=== PATIENT | male | born 1950 | race Caucasian/White ===

== ENCOUNTER 2019-05-19 09:54 | Outpatient (CLI) | payer MEDICARE, MEDICAID, SELFPAY ==
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
== END 2019-05-19 09:55 | disposition home or self-care (01) ==
PROVIDERS: PCP Nurse Practitioner Family; Visit Provider Nurse Practitioner
DX: M54.2 Cervicalgia (principal); R51 Headache; S06.0X9A Concussion with loss of consciousness of unspecified duration, initial encounter; V89.2XXA Person injured in unspecified motor-vehicle accident, traffic, initial encounter; M48.02 Spinal stenosis, cervical region; M47.892 Other spondylosis, cervical region
CPT/HCPCS: 70450; 72141

== ENCOUNTER 2019-08-25 10:15 | Outpatient (CLI) | payer MEDICARE, MEDICAID, SELFPAY ==
--- NOTE | 2019-08-25 10:25 | XR_ITS ---
WS: [id number] CERVICAL SPINE FLEXION EXTENSION TECHNIQUE: 3 views of the cervical spine: lateral neutral, flexion and extension views. CLINICAL INFORMATION: Neck pain COMPARISON: None. FINDINGS: Straightening of the normal cervical lordosis with moderate spondylitic changes. Anterior hypertrophi c changes at C3-C6. Disc space narrowing worse at C4-C5 C5-C6 and C6-C7. Normal C1-2 articulation. No rmal prevertebral soft tissues. No instability on flexion-extension. Posterior elements are normal. No other significant findings. XR/XR cervical spine fl/ex [id number] IMPRESSION: 1. Straightening of the normal cervical lordosis with moderate spondylitic colt nges. 2. Anterior hypertrophic changes worse at C3-C6. 3. No instability on flexion-extension.
--- NOTE | 2019-08-25 10:25 | XR_ITS ---
WS: [id number] LUMBAR SPINE FLEXION AND EXTENSION TECHNIQUE: 3 views of the lumbar spine: Lateral neutral, flexion, and extension views. CLINICAL INFORMATION: Low back pain COMPARISON: None. FINDINGS: Normal lumbar alignment on the neutral view. Mild spondylitic changes. Slight anterior hypertrophic spurring L3-L5. Moderate facet arthropathy L5- S1. Slight anterolisthesis L4 on L5 in flexion measuring 2.4 mm. XR/XR lumbar spine f/e only [id number] IMPRESSION: Mild flexion instability L4-5 measuring 2.4 mm. This is normal alignment in felice tral and extension.
== END 2019-08-25 10:16 | disposition home or self-care (01) ==
LOC: RADWPI 10:21
PROVIDERS: PCP Nurse Practitioner Family; Visit Provider Nurse Practitioner Family
DX: M54.5 Low back pain (principal); M54.2 Cervicalgia; M53.2X6 Spinal instabilities, lumbar region
CPT/HCPCS: 72040; 72120

== ENCOUNTER → 2020-05-31 12:07 | Outpatient (BNVA) | payer MEDICARE, MEDICAID, SELFPAY | PROVIDERS: PCP Nurse Practitioner Family; Visit Provider Nurse Practitioner Family | DX: M51.36 Other intervertebral disc degeneration, lumbar region (principal); M54.5 Low back pain; Z79.899 Other long term (current) drug therapy; Z13.6 Encounter for screening for cardiovascular disorders; E55.9 Vitamin D deficiency, unspecified; Z12.5 Encounter for screening for malignant neoplasm of prostate | CPT/HCPCS: 80053; 80061; 81003; 82306; 83036; 84443; 85025; 87077; 87086; 87184; G0103 ==

== ENCOUNTER → 2021-01-30 09:14 | Outpatient (BNVA) | payer MEDICARE, MEDICAID, SELFPAY | PROVIDERS: PCP Nurse Practitioner Family; Visit Provider Nurse Practitioner Family | DX: Z13.6 Encounter for screening for cardiovascular disorders (principal); Z79.899 Other long term (current) drug therapy; Z12.5 Encounter for screening for malignant neoplasm of prostate; E55.9 Vitamin D deficiency, unspecified | CPT/HCPCS: 80053; 80061; 81003; 82306; 83036; 84443; 85025; G0103 ==

== ENCOUNTER 2022-10-17 05:57 | Emergency (ER) | payer MEDICARE, MEDICAID, SELFPAY ==
[2022-10-17 06:04] VITALS: BP 212/105; PULSE 92; RESP 18; TEMP 36.5; O2SAT 98; BMI 28.7
[2022-10-17 06:08] VITALS: BP 218/117
--- NOTE | 2022-10-17 06:14 | XRR_ITS ---
PROCEDURE INFORMATION: Exam: XR Left Shoulder Exam date and time: 10/17/2022 6:55 AM Age: 72 years old Clinical indication: Pain; Shoulder; Left TECHNIQUE: Imaging protocol: Radiologic exam of the left shoulder. Views: 2 or more views. COMPARISON: No relevant prior studies available. FINDINGS: Bones/joints: There is no acute fracture or dislocation. If symptoms persist, follow-up imaging in several days may be useful to exclude an occult or subtle fracture. No other significant acute bone or joint abnormality. Mild arthritic changes involving the left AC joint and glenohumeral joint. Soft tissues: No significant acute finding. XR/XR shoulder LT min 2V* [id number] IMPRESSION: 1. No acute fracture or dislocation. 2. Other findings discussed above.
--- NOTE | 2022-10-17 06:15 | XRR_ITS ---
PROCEDURE INFORMATION: Exam: XR Chest Exam date and time: 10/17/2022 6:55 AM Age: 72 years old Clinical indication: Shortness of breath; Additional info: Dyspnea/cough TECHNIQUE: Imaging protocol: Radiologic exam of the chest. Views: 1 view. COMPARISON: No relevant prior studies available. FINDINGS: Lungs: No CHF/pulmonary edema. Very mild linear opacities in both lower lungs, likely atelectasis or parenchymal scarring. Subtle pneumonitis not entirely excluded. Please correlate clinically. Visible lungs otherwise appear essentially clear. Pleural spaces: No visible pneumothorax. No definite pleural fluid. Heart/Mediastinum: Heart size is within normal limits. Bones/joints: No significant acute finding. XR/XR chest 1V portable [id number] IMPRESSION: 1. Very mild lower lung opacities, see above discussion. 2. Other findings discussed above.
--- NOTE | 2022-10-17 06:15 | ECG_ITS ---
[facility] Test Date: 2022-10-17 Pat Name: Brenden Ryder Department: Room: Gender: Male Delivery Driver: : 1950 Requested By: Wayne Mojica Order Number: [id number] Meena MD: Bibiana Leahy M.D. Measurements Intervals [place] Rate: 84 P: 47 FL: 164 QRS: -47 QRSD: 98 T: 56 QT: 353 QTc: 419 Interpretive Statements SINUS RHYTHM LEFT AXIS DEVIATION [QRS AXIS < -30] No previous ECG available for comparison Electronically Signed On 10-17-2022 12:25:25 CDT by Bibiana Leahy M.D. [id number]
--- NOTE | 2022-10-17 06:30 | W.ED.EXTPRO ---
HPI - Extremity Problem General: Chief complaint: Extremity Problem,Nontraumatic Stated complaint: Shoulder Pain Time Seen by Provider: 10/17/22 06:14 Source: patient Mode of arrival: ambulatory History of Present Illness: 72-year-old male presents to the emergency room with complaint of shoulder pain. Presents here he states his shoulder has been dislocated all night he wants this to relocated he said shoulder pain intermittently for the last week. No diaphoresis with that he denies anything that seems to exacerbate or worsen it last night for period of time he was unable to raise his left arm that has resolved. He had no other symptoms no vision difficulty no difficulty speech or swallowing denies chest pain. No shortness of breath. His blood pressure is significantly elevated which he dismisses that he states that his blood pressure is always high he controls it with herbs. He initially denies EKG blood work and antihypertensives to emergently lower his blood pressure. Patient states for a time last night he could not lift his left arm. MD Complaint: extremity pain and joint pain Onset (ago): hour(s) Pain Consistency: intermittent Location: left and upper extremity Quality: sharp Radiation: none Relieving factors: nothing Associated symptoms: Deny arthralgias, chest pain, fever(s), myalgias, rash or short of breath Review of Systems Const: Denies: fever(s) or chills ENMT: Denies: throat pain, ear or mastoid pain, nasal discharge or nasal congestion Card: Denies: chest pain, palpitations or irregular heart rhythm Resp: Denies: dyspnea, productive cough or non-productive cough GI: Denies: abdominal pain, nausea, vomiting, hematemesis, coffee ground emesis, diarrhea, constipation, bloating, hematochezia or melena : Denies: flank pain, dysuria, urinary frequency or urinary urgency Musc: Reports: joint pain; Denies: neck pain or back pain Skin/Breast: Denies: rash Neuro: Reports: weakness in extremities PFSH ED PFSH: Medical History Cervical disc disorder with myelopathy of mid-cervical region Cervical strain DDD (degenerative disc disease), lumbar Hypertension screen Low back pain of over 3 months duration Medication management Prostate cancer screening Stenosis of cervical spine with myelopathy Vitamin D deficiency Surgical History History of appendectomy Family History Mother Cancer Father Stroke Social History Smoking and tobacco status: former smoker Alcohol intake: former Substance/Drug Use: never Household members: spouse Marital status: Current occupational status: employed and retired Current occupation: Supervisor [employer] Physical Exam Const: GENERAL APPEARANCE: cooperative and comfortable ORIENTATION/CONSCIOUSNESS: Yes awake, Yes oriented to person, Yes oriented to place and Yes oriented to time HENMT: COMMON NORMALS: normocephalic, atraumatic and hearing grossly normal bilaterally HEAD & SCALP: normocephalic and atraumatic Resp: COMMON NORMALS: normal respiratory effort, No retractions, No use of accessory muscles and clear to auscultation bilaterally AUSCULTATION: clear to auscultation bilaterally Cardio: COMMON NORMALS: regular rate, regular rhythm and No murmurs present (Cardio) RATE: regular rate RHYTHM: regular rhythm GI: COMMON NORMALS: Soft to palpation and No hepatosplenomegaly present AUSCULTATION: Yes normoactive bowel sounds PALPATION: Yes Soft to palpation, No Tenderness to palpation present (GI), No Guarding due to palpation present (GI) and Yes No hepatosplenomegaly present Extremity: COMMON NORMALS: normal to inspection, capillary refill normal, no clubbing, cyanosis or edema, no calf tenderness and no pedal edema OTHER: No joint deformity. There are some thickness in the upper humerus but on palpation I suspect he may have a previous fracture of the left glenohumeral joint is intact he has mildly restricted range of motion but generally moves about normally and there is no dislocation. Left arm neurovascularly intact Neuro: SENSORIUM/ORIENTATION: Yes oriented to person, Yes oriented to place and Yes oriented to time Skin: COMMON NORMALS: no rashes or lesions noted GENERAL SKIN EXAM: no rashes or lesions noted Course Vital Signs: Vital signs: Vital Signs Temperature 97.7 F 10/17/22 06:04 Pulse Rate 95 10/17/22 09:23 Respiratory Rate 16 10/17/22 09:23 Blood Pressure 182/90 10/17/22 09:23 Pulse Oximetry 96 10/17/22 09:23 Oxygen Delivery Me thod Room Air 10/17/22 06:04 MDM - Extremity (Nontraumatic) Medical Decision Making X-ray of the shoulder shows arthritic changes otherwise is unremarkable. Cardiac enzymes negative EKG shows a junctional rhythm. Patient's blood pressure was extremely high when he first arrived he did respond with medications given I will discharge him home on amlodipine 5 mg daily lisinopril 20 mg daily have him follow-up with his primary care provider within the next week to reevaluate blood pressure. For his shoulder will refer to orthopedics. I believe his shoulder pain is musculoskeletal in nature. He continues to deny any chest pain. Recheck with any worsening or changes symptoms Medical Records I reviewed the patient's medical records. Lab Data I reviewed the patient's lab results. 10/17/22 06:24 10/17/22 06:24 Radiology Impressions Shoulder X-Ray 10/17/22 06:14 IMPRESSION: 1. No acute fracture or dislocation. 2. Other findings discussed above. Chest X-Ray 10/17/22 06:15 IMPRESSION: 1. Very mild lower lung opacities, see above discussion. 2. Other findings discussed above. Head CT 10/17/22 06:43 IMPRESSION: 1. No acute intracranial hemorrhage or mass effect. 2. No definite acute infarct by CT, see above. 3. Other findings discussed above. Laboratory Results WBC 13.3 10^3/uL (4.0-10.0) H 10/17/22 06:24 RBC 5.03 10^6/uL (4.1-5.3) 10/17/22 06:24 Hgb 15.8 g/dL (11.7-16.6) 10/17/22 06:24 Hct 46.1 % (42.0-52.0) 10/17/22 06:24 MCV 91.7 fl (80-94) 10/17/22 06:24 MCH 31.4 pg (28.0-34.0) 10/17/22 06:24 MCHC 34.3 g/dL (30.0-36.0) 10/17/22 06:24 RDW 12.2 % (12.1-15.1) 10/17/22 06:24 Plt Count 314 10^3/cmm (130-400) 10/17/22 06:24 MPV 9.8 fL (7.4-10.4) 10/17/22 06:24 Neut % (Auto) 72.1 % 10/17/22 06:24 Lymph % (Auto) 15.8 % 10/17/22 06:24 Bladen % (Auto) 7.4 % 10/17/22 06:24 Eos % (Auto) 3.5 % 10/17/22 06:24 Baso % (Auto) 0.6 % 10/17/22 06:24 Neut # (Auto) 9.62 10^3/uL (1.8-7.7) H 10/17/22 06:24 Lymph # (Auto) 2.1 10^3/uL (0.8-4.8) 10/17/22 06:24 Bladen # (Auto) 1.0 10^3/uL (0.2-0.9) H 10/17/22 06:24 Eos # (Auto) 0.5 10^3/uL (0.0-0.8) 10/17/22 06:24 Baso # (Auto) 0.1 10^3/uL (0.0-0.1) 10/17/22 06:24 Nucleated RBC % (auto) 0 % 10/17/22 06:24 Nucleated RBCs # 0.0 /100WBC 10/17/22 06:24 Sodium 137 mmol/L (136-145) 10/17/22 06:24 Potassium 4.4 mmol/L (3.5-5.1) 10/17/22 06:24 Chloride 102 mmol/L (98-107) 10/17/22 06:24 Carbon Dioxide 23 mmol/L (22-29) 10/17/22 06:24 Anion Gap 16.4 (5-19) 10/17/22 06:24 BUN 11 mg/dL (8-23) 10/17/22 06:24 Creatinine 1.0 mg/dL (0.7-1.2) 10/17/22 06:24 GFR Calculation 73.9 mL/min (90-130) L 10/17/22 06:24 Glucose 123 mg/dL (65-115) H 10/17/22 06:24 Calculated Osmolality 285 mOsm/kg (285-295) 10/17/22 06:24 Calcium 9.1 mg/dL (8.5-10.5) 10/17/22 06:24 Troponin T Baseline 6 ng/L (0-15) 10/17/22 06:24 Troponin T 120 Minute 6.00 ng/L (0-15) 10/17/22 08:27 Discharge Plan Discharge Patient Disposition: Home Clinical Impression: HTN (hypertension), Acute pain of left shoulder Condition: Stable Prescriptions: New amlodipine 10 mg tablet 5 mg PO DAILY Qty: 30 0RF lisinopril 20 mg tablet 20 mg PO DAILY Qty: 30 0RF No Action echinacea 500 mg Capsule 500 mg PO DAILY hawthorn sarkar 500 mg Capsule 500 mg PO DAILY Silica Caps 1 cap PO DAILY Discharge Orders: Discharge ED (Routine); Ordered 10/17/22 Ordered By: Wayne Taylor Referrals: Brian Acuna FNP [Primary Care Provider] - Discharge Diet: Usual diet Discharge Activity: Limit activity as instructed Patient Instructions: Opioid Safety, Pain Management Activity Restrictions/Additional Instructions: You were seen today for left shoulder pain. Your cardiac enzymes and EKG did not show any acute changes. You do have a significant elevation in your blood pressure recommend that you start amlodipine and lisinopril for your blood pressure. We will set you up to follow-up with orthopedics for your shoulder and follow-up with your primary care doctor for your blood pressure within the next week. Coding Level of Care Code ED Marine Electronics Technician for Coral Doss
[2022-10-17 06:35] LABS: Basophils # 0.1 10^3/uL (0.0-0.1); Basophils % 0.6 %; Eosinophils # 0.5 10^3/uL (0.0-0.8); Eosinophils % 3.5 %; Hematocrit 46.1 % (42.0-52.0); Hemoglobin 15.8 g/dL (11.7-16.6); Lymphocytes # 2.1 10^3/uL (0.8-4.8); Lymphocytes % 15.8 %; Mean Corpuscular HGB Conc 34.3 g/dL (30.0-36.0); Mean Corpuscular Hemoglobin 31.4 pg (28.0-34.0); Mean Corpuscular Volume 91.7 fl (80-94); Mean Platelet Volume 9.8 fL (7.4-10.4); Monocytes % 7.4 %; Neutrophils # 9.62 10^3/uL (1.8-7.7); Neutrophils % 72.1 %; Nucleated Red Blood Cells % 0 %; Platelet Count 314 10^3/cmm (130-400); Red Blood Count 5.03 10^6/uL (4.1-5.3); Red Cell Distribution Width 12.2 % (12.1-15.1); White Blood Count 13.3 10^3/uL (4.0-10.0)
--- NOTE | 2022-10-17 06:43 | CTR_ITS ---
PROCEDURE INFORMATION: Exam: CT Head Without Contrast Exam date and time: 10/17/2022 6:51 AM Age: 72 years old Clinical indication: Other: Left shoulder pain; Additional info: Left arm weakness TECHNIQUE: Imaging protocol: Computed tomography of the head without contrast. Radiation optimization: All CT scans at this facility use at least one of these dose optimization techniques: automated exposure control; mA and/or kV adjustment per patient size (includes targeted exams where dose is matched to clinical indication); or iterative reconstruction. REPORTING DATA: Count of CT and Cardiac NM exams in prior 12 months: This patient has received 0 known CTs and 0 known cardiac nuclear medicine studies in the 12 months prior to the current study. COMPARISON: CT head wo con* [id number] 05/19/2019 11:21 AM RADIATION DOSE METRICS: Total DLP (mGy-cm): 1153.67 FINDINGS: Brain: No acute intracranial hemorrhage or mass effect. No definite acute infarct by CT. MRI would be more sensitive/specific for detection, as clinically directed. Cerebral ventricles: Ventricle size is normal for age. Paranasal sinuses: Included paranasal sinuses are essentially clear. Mastoid air cells: No significant acute finding. Bones/joints: No definite acute skull fracture. Soft tissues: No significant acute finding. Vasculature: Vascular calcifications in the internal carotid arteries. CT/CT head wo con* [id number] IMPRESSION: 1. No acute intracranial hemorrhage or mass effect. 2. No definite acute infarct by CT, see above. 3. Other findings discussed above.
[2022-10-17] MEDS: hyDRALAzine 20 mg/mL INJ 1 mL 10 MG IVP (06:44)
[2022-10-17] MEDS: amlodipine 10 mg Tablet PO (06:44)
[2022-10-17 06:47] VITALS: BP 199/98
[2022-10-17 06:57] LABS: Anion Gap 16.4 (5-19); Blood Urea Nitrogen 11 mg/dL (8-23); Calcium 9.1 mg/dL (8.5-10.5); Carbon Dioxide 23 mmol/L (22-29); Chloride 102 mmol/L (98-107); Creatinine Clr Calc Pharmacy 77.8626; Glomerular Filtration Rate 73.9 mL/min (90-130); Glucose 123 mg/dL (65-115); Osmolality Calculated 285 mOsm/kg (285-295); Potassium 4.4 mmol/L (3.5-5.1); Sodium 137 mmol/L (136-145)
[2022-10-17 08:11] VITALS: BP 167/88; O2SAT 96
[2022-10-17 08:34] LABS: Troponin(5th) Baseline 6 ng/L (0-15)
[2022-10-17 09:23] VITALS: BP 182/90; PULSE 95; RESP 16; O2SAT 96
[2022-10-17 09:43] LABS: Troponin 5 2HR Delta 0 ABS# (0-10)
--- NOTE | 2022-10-17 10:09 | ECG_ITS ---
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 Measurements Intervals [place] Rate: 86 P: 35 VA: 172 QRS: -35 QRSD: 97 T: 58 QT: 353 QTc: 422 Interpretive Statements SINUS RHYTHM LEFT AXIS DEVIATION [QRS AXIS < -30] Compared to ECG 10/17/2022 06:30:38 No significant changes Electronically Signed On 10-17-2022 12:32:06 CDT by Bibiana Leahy M.D. [id number]
--- NOTE | 2022-10-18 11:00 | DCPLANNER ---
Addendum entered by Susie Jaime 10/21/22 15:42: manager mining received the following message from the front office at ortho regarding follow up appointment: spoke to patient daughter, they are going to hold off on ortho referreal for now. she said he has an appt w/ his primary care on Friday and they will decided if they need an ortho f/u after that visit Original Note: manager mining had message to schedule a follow up appointment for patient with ortho. manager mining sent patients information to the front office staff at ortho. Patients information will be printed and reviewed. Clinic will call patient with appointment information
== END 2022-10-17 09:24 | disposition home or self-care (01) ==
PROVIDERS: Emergency Provider Family Medicine; PCP Nurse Practitioner Family
DX: M19.012 Primary osteoarthritis, left shoulder (principal); I10 Essential (primary) hypertension; Z87.891 Personal history of nicotine dependence
CPT/HCPCS: 70450; 71045; 73030; 80048; 84484; 85025; 93005; 96374; 99285; J0360

== ENCOUNTER → 2023-09-15 10:14 | Outpatient (BNVA) | payer MEDICARE, MEDICAID, SELFPAY | PROVIDERS: PCP Nurse Practitioner Family; Visit Provider Nurse Practitioner Family | DX: M25.50 Pain in unspecified joint (principal) | CPT/HCPCS: 80053; 85025; 85651; 86140; 86618; 86666; 86757 ==

== ENCOUNTER → 2023-09-22 11:35 | Outpatient (BNVA) | payer MEDICARE, MEDICAID, SELFPAY | PROVIDERS: PCP Nurse Practitioner Family; Visit Provider Nurse Practitioner Family | DX: E87.5 Hyperkalemia (principal) | CPT/HCPCS: 80053 ==

== ENCOUNTER → 2024-11-25 15:38 | Outpatient (BNVA) | payer MEDICARE, MEDICAID, SELFPAY | PROVIDERS: PCP Nurse Practitioner Family; Visit Provider Nurse Practitioner Family | DX: I10 Essential (primary) hypertension (principal); E55.9 Vitamin D deficiency, unspecified; Z12.5 Encounter for screening for malignant neoplasm of prostate; Z79.899 Other long term (current) drug therapy | CPT/HCPCS: 80053; 80061; 81003; 82306; 83036; 84443; 85025; G0103 ==

== ENCOUNTER 2024-11-26 15:17 | Outpatient (CLI) | payer MEDICARE, MEDICAID, SELFPAY ==
--- NOTE | 2024-11-26 15:23 | XRR_ITS ---
PROCEDURE INFORMATION: Exam: XR Lumbosacral Spine Exam date and time: 11/26/2024 3:35 PM Age: 74 years old Clinical indication: Low back pain; Additional info: M25.551 - pain in right hip TECHNIQUE: Imaging protocol: Radiologic exam of the lumbosacral spine. Views: 6 or more views. Including flexion and extension views. COMPARISON: CR XR lumbar spine f/e only [id number] 08/25/2019 10:40 AM FINDINGS: Bones/joints: Mild marginal spurring. Slight disc space narrowing L4-L5. Minimal anterolisthesis of L4 on L5 which does not change with patient motion. The pedicles are intact. Soft tissues: Unremarkable. XR/XR lumbar spine 6V w f/e [id number] IMPRESSION: Degenerative disc disease.
--- NOTE | 2024-11-26 15:23 | XRR_ITS ---
PROCEDURE INFORMATION: Exam: XR Bilateral Hips Exam date and time: 11/26/2024 3:35 PM Age: 74 years old Clinical indication: Hip pain; Bilateral; Additional info: M25.551 - pain in right hip TECHNIQUE: Imaging protocol: Radiologic exam of the bilateral hips. Views: 2 views of hips with pelvis when performed. COMPARISON: CR XR lumbar spine 6V w f/e [id number] 11/26/2024 3:35 PM FINDINGS: Bones/joints: Severe degenerative changes of each hip with [id number] articulation, eburnation, periarticular cyst formation, and marginal spurring. No lytic or sclerotic bone lesion. No acute fracture. Soft tissues: Unremarkable. XR/XR hip BI m 5V wo/w pel* [id number] IMPRESSION: Severe osteoarthritis.
== END 2024-11-26 15:18 | disposition home or self-care (01) ==
PROVIDERS: PCP Nurse Practitioner Family; Visit Provider Nurse Practitioner Family
DX: M16.0 Bilateral primary osteoarthritis of hip (principal); G89.29 Other chronic pain; M54.30 Sciatica, unspecified side; M51.369 Other intervertebral disc degeneration, lumbar region without mention of lumbar back pain or lower extremity pain; M46.06 Spinal enthesopathy, lumbar region; M85.68 Other cyst of bone, other site; M76.9 Unspecified enthesopathy, lower limb, excluding foot
CPT/HCPCS: 72114; 73523

== ENCOUNTER → 2024-12-24 11:07 | Outpatient (BNVA) | payer MEDICARE, MEDICAID, SELFPAY | PROVIDERS: PCP Nurse Practitioner Family; Visit Provider Nurse Practitioner Family | DX: R97.20 Elevated prostate specific antigen [PSA] (principal) | CPT/HCPCS: 84153 ==

== ENCOUNTER → 2025-01-05 09:10 | Outpatient (BNVA) | payer MEDICARE, MEDICAID, SELFPAY | PROVIDERS: PCP Nurse Practitioner Family; Visit Provider Student in an Organized Health Care Education/Training Program | DX: M16.11 Unilateral primary osteoarthritis, right hip (principal); M16.12 Unilateral primary osteoarthritis, left hip | CPT/HCPCS: 73523; 99204 ==